=== PATIENT | male | born 1960 | race Caucasian/White ===

== ENCOUNTER 2017-01-05 13:38 | Inpatient (IN) | payer BC ==
[~2017-01-05] VITALS: Ht 190.5 cm; Wt 118.1 kg
[~2017-01-05 13:38] MED LIST: ANTIVERT25 MG PO; CORTISPORIN-TC10 M1 RIGHT EAR; EXFORGE 10/11 TABLET PO; GLUCOPHAGE1000 MG PO; LIPITOR40 MG PO; MUCINEX D ER T1 EACH PO; ZOFRAN ODT4 MG PO; ZOFRAN4 MG PO
[2017-01-05 13:52] LABS: EOSINOPHIL (%) 0.8 % (0-5); EOSINOPHIL COUNT 0.1 K/uL (0-0.3); HEMATOCRIT 46.8 % (38.0-50.0); IMMATURE GRANULOCYTE (%) 0.6 % (0.0-0.7); IMMATURE GRANULOCYTE COUNT 0.1 K/uL; INSTRUMENT ABS NEUTROPHIL CT 7.3 K/uL; LYMPHOCYTE COUNT 1.9 K/uL (1.0-2.8); MCHC 34.2 G/DL (30.0-36.0); MCV 90.7 FL (86-99); MEAN PLAT.VOLUME 11.3 uM^3 (9.0-12.4); MONOCYTE (%) 8.5 % (3-12); MONOCYTE COUNT 0.9 K/uL (0-0.8); NEUTROPHIL (%) 71.6 % (45-76); NEUTROPHIL COUNT 7.3 K/uL (1.8-6.4); PLATELET COUNT 196 K/uL (156-360); RBC DIS.WIDTH-SD 40.2 % (39-53); RED BLOOD COUNT 5.16 M/uL (4.00-5.50); WHITE BLOOD COUNT 10.3 K/uL (4.1-10.2)
[2017-01-05 14:02] LABS: AMYLASE 20 IU/L (1-118); CHLORIDE 106 mEq/L (99-109); POTASSIUM 3.7 mEq/L (3.7-5.4); SODIUM 139 mEq/L (136-147)
[2017-01-05 14:03] LABS: PTT 22.2 (25-32)
[2017-01-05 14:04] LABS: GLUCOSE 298 mg/dL (70-99)
[2017-01-05 14:05] LABS: ANION GAP 11 MEQ/L (2-14)
[2017-01-05 14:07] LABS: SERUM ETHYL ALCOHOL < 10 mg/dL
[2017-01-05 14:08] LABS: GFR ESTIMATE (CALCULATED) > 59 mL/min/; UREA NITROGEN (BUN) 13 mg/dL (9-23)
[2017-01-05 14:09] VITALS: BP 149/80
[2017-01-05 14:10] LABS: LIPASE 16 U/L (1.0-51.0)
[2017-01-05 14:15] LABS: TROP-I INTERPRETATION NEGATIVE; TROPONIN-I < 0.01 ng/mL (0.0-0.30)
== END 2017-01-05 17:18 | disposition short-term general hospital (02) | DRG 272 ==
LOC: EME 13:38 → CATH 15:00 → 4WEST 15:43
PROVIDERS: Emergency Medicine
DX: I21.19 ST elevation (STEMI) myocardial infarction involving other coronary artery of inferior wall (principal); I25.10 Atherosclerotic heart disease of native coronary artery without angina pectoris; E11.9 Type 2 diabetes mellitus without complications; E78.5 Hyperlipidemia, unspecified; I10 Essential (primary) hypertension; F17.200 Nicotine dependence, unspecified, uncomplicated
CPT/HCPCS: 36415; 80048; 81003; 82150; 83036; 83690; 84484; 85025; 85347; 85610; 85730; 86900; 86901; 90832; 93005; 99281; 99285; C1769; C1887; C1894; G0480; J0461; J1644; J2250; J2405; J3010; J3246; J7050